=== PATIENT | male | born 1995 | race African-American/Black ===

== ENCOUNTER 2024-09-25 12:12 | Emergency (ER) | payer OTHER ==
[~2024-09-25 12:12] MED LIST: Iopamidol 300 61% 100 ML VIAL FS ONE
[2024-09-25] MEDS ORDERED: Ketorolac Tromethamine 30 MG (1 mL) VIAL ONE (12:56)
[2024-09-25 13:05] LABS: #Basophils 0.06 10x3/uL (0.0-0.2); #Eosinophils 0.09 10x3/uL (0.0-0.5); #Monocytes 0.62 10x3/uL (0.0-1.1); #Neutrophils 5.53 10x3/uL (1.5-8.4); %Basophils 0.8 % (0.0-2.0); %Eosinophils 1.1 % (0.0-6.0); %Lymphocytes 20.9 % (18.0-47.0); %Monocytes 7.8 % (0.0-10.0); %Neutrophils 69.0 % (40.0-75.0); Hematocrit 43.0 % (38.8-50.0); Hemoglobin 14.1 g/dL (13.5-17.5); Mean Corpuscular Hemoglobin 25.5 pg (27.0-33.0); Mean Corpuscular Volume 77.6 fL (81.2-95.1); Platelet Count 325 10x3/uL (150-450); Red Blood Cell (RBC) Count 5.54 10x6/uL (4.32-5.72); White Blood Cell (WBC) Count 8.00 10x3/uL (3.5-10.5)
[2024-09-25 13:23] LABS: ALT (SGPT) 27 U/L (Less than 45); AST (SGOT) 34 U/L (11-34); Albumin 4.0 g/dL (3.1-4.5); Alkaline Phosphatase 88 U/L (40-110); Anion Gap 11 mmol/L (10-20); BUN (Urea Nitrogen) 13 mg/dL (8.9-20.6); Bilirubin, Total 0.4 mg/dL (0.3-1.2); Calc. Creatinine Clearance 0 mL/min (70-130); Calcium 9.1 mg/dL (7.8-10.44); Carbon Dioxide 22 mmol/L (22-29); Chloride 106 mmol/L (98-107); Globulin 5.2 g/dL (2.4-3.5); Glucose 93 mg/dL (70-105); Lipase 16 U/L (8-78); Potassium 4.3 mmol/L (3.5-5.1); Sodium 135 mmol/L (136-145)
[2024-09-25 14:42] LABS: Glucose, Urine (Dipstick) Normal (Negative); Leukocyte Negative (Negative); Protein, Urine (Dipstick) 15 mg/dl (Neg-Trace); Specific Gravity, Urine 1.005 (1.005-1.030)
[2024-09-25] MEDS ORDERED: cefTRIAXone (ROCEPHIN) 1 GM VIAL ONE (14:49)
[2024-09-25 16:03] LABS: Bacteria/HPF None Seen HPF (None Seen); CAUTI Indications for Culture Pelvic or flank pain; RBC/HPF None Seen HPF (0-3); Urine Culture Reflex No No; WBC/HPF None Seen HPF (0-3)
== END 2024-09-25 15:32 | disposition home or self-care (01) ==
LOC: CSHERS 12:12
DX: K52.89 Other specified noninfective gastroenteritis and colitis (principal); K20.90 Esophagitis, unspecified without bleeding
CPT/HCPCS: 74177; 80053; 81001; 83690; 85025; 96374; 96375; J0696; J1885; J2270; Q9967